=== PATIENT | female | born 1985 | race Caucasian/White ===

== ENCOUNTER 2019-09-30 09:24 | Emergency (ER) | payer OTHER ==
[~2019-09-30] VITALS: Ht 152.4 cm; Wt 72.6 kg
[2019-09-30] MEDS ORDERED: TESSALON PERLE100 MG PO (12:09)
[2019-09-30 12:32] VITALS: BP 103/61
== END 2019-09-30 12:34 | disposition home or self-care (01) ==
LOC: ER 09:24
DX: J06.9 Acute upper respiratory infection, unspecified (principal)